=== PATIENT | female | born 1975 | race Hispanic/Latino ===

== ENCOUNTER 2016-08-19 16:59 | Emergency (ER) | payer MEDICAID ==
[2016-08-19 17:22] VITALS: BP 131/83; PULSE 86; RESP 16; TEMP 98.6; O2SAT 100
--- NOTE | 2016-08-19 17:38 | ED PDOC ---
HPI: Abdomen Chief Complaint (Provider): left sided flank pain History Per: Patient History/Exam Limitations: no limitations Onset/Duration Of Symptoms: Days (1 day), Waxing/Waning, Sudden Onset Outside of [place] travel?: No Current Symptoms Are (Timing): Still Present Location Of Pain/Discomfort: Other (left flank pain) Quality Of Discomfort: Sharp Associated Symptoms: Nausea, Urinary Symptoms (hematuria). denies: Fever, Vomiting, Diarrhea, Constipation Exacerbating Factors: Movement Alleviating Factors: Rest Additional History Per: Patient Abnormal Vaginal Bleeding: No <Guillermo Wang - Last Filed: 08/19/16 19:03> <Greta Rey - Last Filed: 08/19/16 20:48> Time Seen by Provider: 08/19/16 17:27 Chief Complaint (Nursing): Abdominal Pain Additional Complaint(s): 41 y/o F with h/o renal stones, pyelonephritis requiring hospitalizations ( 2000 , 2015, 2016) presenting due to 1 day history of left sided flank pain and hematuria. Pain is intense, waxing and waning, 8/10 intensity. Aggravated by movement and alleviated by rest. Associated with nausea, no vomtiing, some pain upon straining to urinate. Denies fevers, chills, CUMMINGS, cp,sob, cough, focal weakness. Of note, patient states requiring IV abx in the past for pyelonephritis and required lithotripsy back in 2000. Denies following up with any urologist or vice president payment. LMP: n/a hysterectomy in 2013 PMD: in [place] ( patient has not followed up since she moved to [place]) PMH: PE x 1 2013 ( states being on Xarelto indefinitely as per PMD?), renal stones, pyelonephritis, anxiety, depression (Guillermo Wang) Supervising Attending Note <Guillermo Wang - Last Filed: 08/19/16 19:03> - Supervising Attending Note The Documented history was done by the: Physician Database Administration Project Manager, Attending Physician The documented physical exam was done by the: Physician Database Administration Project Manager, Attending Physician - Attestation: I have personally seen and examined this patient.: Yes I have fully participated in the care of the patient.: Yes I have reviewed all pertinent clinical information: Yes <Greta Rey - Last Filed: 08/19/16 20:48> - Notes: Notes:: LEFT sided flank pain with h/o renal colic, findings of recurrent v chronic LEFT renal disease on CT scan, but no acute obstructing stones. Pt feels better. Strongly advised urology follow up. (Greta Rey) Past Medical History - Family History Family History: States: Other (Father h/o ''kidney problems'') - Social History Current smoker - smoking cessation education provided: No Alcohol: Social Drugs: Denies <Guillermo Wang - Last Filed: 08/19/16 19:03> <Greta Rey - Last Filed: 08/19/16 20:48> Vital Signs: Last Vital Signs Temp 98.6 F 08/19/16 17:20 Pulse 86 08/19/16 17:20 Resp 16 08/19/16 17:20 BP 131/83 08/19/16 17:20 Pulse Ox 100 08/19/16 19:04 - Home Medications Home Medications: Ambulatory Orders Medication Instructions Recorded Ciprofloxacin HCl [Cipro] 250 mg PO BID #14 tab 08/19/16 Tamsulosin [Flomax] 0.4 mg PO DAILY #14 cap 08/19/16 traMADol [Ultram] 50 mg PO TID PRN 4 Days 08/19/16 - Allergies Allergies/Adverse Reactions: Allergies Allergy/AdvReac Type Severity Reaction Status Date / Time NSAIDS (Non-Steroidal Allergy ANAPHYLAXIS Verified 08/19/16 17:19 Anti-Inflamma Penicillins Allergy ANAPHYLAXIS Verified 08/19/16 17:19 Sulfa (Sulfonamide Allergy ANAPHYLAXIS Verified 08/19/16 17:19 Antibiotics) Review of Systems ROS Statement: Except As Marked, All Systems Reviewed And Found Negative Constitutional: Negative for: Fever, Chills Cardiovascular: Negative for: Chest Pain, Palpitations, Edema, Light Headedness Respiratory: Negative for: Cough, Shortness of Breath, Wheezing Gastrointestinal: Positive for: Nausea, Abdominal Pain. Negative for: Vomiting , Diarrhea, Constipation, Hematochezia, Hematemesis Genitourinary Female: Positive for: Dysuria, Frequency, Hematuria. Negative for : Incontinence, Vaginal Discharge, Vaginal Bleeding, Rash Skin: Negative for: Rash <Guillermo Wang - Last Filed: 08/19/16 19:03> Physical Exam - Physical Exam Appears: Positive for: Uncomfortable Head Exam: Positive for: ATRAUMATIC Skin: Positive for: Warm, Dry Eye Exam: Positive for: EOMI Neck: Positive for: Normal, Painless ROM, Supple Cardiovascular/Chest: Positive for: Regular Rate, Rhythm Respiratory: Positive for: Normal Breath Sounds. Negative for: Wheezing, Respiratory Distress Gastrointestinal/Abdominal: Positive for: Soft. Negative for: Tenderness, Distended Back: Positive for: L CVA Tenderness. Negative for: R CVA Tenderness, Vertebral Tenderness Extremity: Negative for: Pedal Edema, Calf Tenderness Neurologic/Psych: Positive for: Alert, Oriented. Negative for: Motor/Sensory Deficits <Guillermo Wang - Last Filed: 08/19/16 19:03> - Laboratory Results Result Diagrams: 08/19/16 18:36 08/19/16 18:36 - ECG O2 Sat by Pulse Oximetry: 100 <Guillermo Wang - Last Filed: 08/19/16 19:03> - Laboratory Results Result Diagrams: 08/19/16 18:36 08/19/16 18:36 <Greta Rey - Last Filed: 08/19/16 20:48> - Progress ED Course And Treament: Left sided flank pain 2/2 renal stone IVF morphine 4 mg Zofran 4 mg CBC, CMP, UA CT abdo w/o contrast reassess (Guillermo Wang) Disposition - Disposition Disposition: Transfer of Care Disposition Time: 19:04 <Guillermo Wang - Last Filed: 08/19/16 19:03> Comment: Assumed care at 7pm pending reassessment and ER disposition. - Disposition Disposition: Routine/Home Disposition Time: 19:00 <Greta Rey - Last Filed: 08/19/16 20:48> - Clinical Impression Clinical Impression: Flank pain - Disposition Referrals: [facility] [Outside] [facility] [Outside] (CALL TOMORROW TO SETUP FOLLOW UP APPOINTMENT WITHIN A WEEK. YOU WILL NEED TO VISIT CLINIC FIRST IN ORDER TO SEE OTHER SPECIALISTS. YOU NEED TO FOLLOW UP WITH A UROLOGIST IN 1-2 WEEKS.) Condition: IMPROVED Prescriptions: Ciprofloxacin HCl [Cipro] 250 mg PO BID #14 tab Tamsulosin [Flomax] 0.4 mg PO DAILY #14 cap traMADol [Ultram] 50 mg PO TID PRN 4 Days PRN Reason: SEVERE PAIN ONLY Instructions: Renal Colic (ED)
[2016-08-19] MEDS ORDERED: Sodium Chloride 0.9% 1,000 ML IV STA (17:59)
[2016-08-19 18:32] LABS: RBC URINE 351 /hpf (0-3); URINE BACTERIA OCC (<OCC); URINE BILIRUBIN NEGATIVE (NEGATIVE); URINE BLOOD LARGE (NEGATIVE); URINE COLOR RED (YELLOW); URINE GLUCOSE (UA) NEG (Normal); URINE KETONE NEGATIVE (NEGATIVE); URINE LEUKOCYTE ESTERASE TRACE Leu/uL (Negative); URINE PROTEIN >=500 mg/dL (NEGATIVE); URINE UROBILINOGEN 0.2-1.0 mg/dL (0.2-1.0); WBC URINE 14 /hpf (0-5)
[2016-08-19 18:39] LABS: BASO % 0.8 % (0.0-2.0); EOS % 0.9 % (0.0-4.0); HEMATOCRIT 36.9 % (34.0-47.0); LYMPH # 1.3 K/uL (1.0-4.3); LYMPH % 26.1 % (20.0-40.0); MEAN CELL VOLUME 88.2 fl (81.0-99.0); MEAN CORPUSCULAR HEMOGLOBIN 28.9 pg (27.0-31.0); MEAN CORPUSCULAR HGB CONC 32.8 g/dL (33.0-37.0); MEAN PLATELET VOLUME 8.2 fl (7.2-11.7); MONO # 0.4 K/uL (0.0-0.8); MONO % 7.6 % (0.0-10.0); NEUT # 3.2 K/uL (1.8-7.0); NEUT % 64.6 % (50.0-75.0); RED CELL DISTRIBUTION WIDTH 14.5 % (11.5-14.5); WHITE BLOOD COUNT 4.9 K/uL (4.8-10.8)
[2016-08-19 18:56] LABS: ALB/GLOB RATIO 1.3 (1.0-2.1); ALKALINE PHOSPHATASE 58 U/L (38-126); ALT/SGPT 27 U/L (9-52); AST/SGOT 24 U/L (14-36); BILIRUBIN,TOTAL 0.3 mg/dl (0.2-1.3); BLOOD UREA NITROGEN 10 mg/dl (7-17); CALCIUM 9.6 mg/dL (8.4-10.2); CARBON DIOXIDE 24 mmol/L (22-30); CHLORIDE 106 mmol/L (98-107); GFR AFRICAN-AMERICAN > 60; GLUCOSE,RANDOM 93 mg/dL (65-105); POTASSIUM 3.7 MMOL/L (3.6-5.0); SODIUM 147 mmol/l (132-148); TOTAL PROTEIN 7.3 G/DL (6.3-8.2)
--- NOTE | 2016-08-19 19:01 | CT ---
PROCEDURE: CT Abdomen and Pelvis without intravenous contrast HISTORY: LEFT flank pain COMPARISON: None. TECHNIQUE: Axial and reformatted coronal and sagittal CT images of the abdomen and pelvis were obtained without IV or oral contrast administration.. Contrast Dose: 0 Radiation dose: Total exam DLP = 1115.8 mGy-cm. This CT exam was performed using one or more of the following dose reduction techniques: Automated exposure control, adjustment of the mA and/or kV according to patient size, and/or use of iterative reconstruction technique. FINDINGS: LOWER THORAX: No evidence of acute pathology. LIVER: Mild hepatomegaly and mild hepatic steatosis seen. GALLBLADDER AND BILE DUCTS: Status post cholecystectomy. PANCREAS: Unremarkable. No gross lesion or ductal dilatation. SPLEEN: Unremarkable. ADRENALS: Unremarkable. No mass. KIDNEYS AND URETERS: The left kidney is smaller than the right demonstrate market irregular cortex with foci of cortical thinning suggestive of prior infection or and or infarction. There are nonobstructing small left renal calculi mainly in the mid and upper pole. The largest calculus measures approximately 3.5 millimeter. Mildly dilated left renal collecting system without definite evidence of stone in the ureter. The right kidney is grossly unremarkable. VASCULATURE: Unremarkable. No aortic aneurysm. BOWEL: Unremarkable. No obstruction. No gross mural thickening. APPENDIX: The appendix is not visualized. PERITONEUM: Unremarkable. No free fluid. No free air. LYMPH NODES: Unremarkable. No enlarged lymph nodes. BLADDER: Unremarkable. REPRODUCTIVE: Likely status post hysterectomy. BONES: No acute fracture. OTHER FINDINGS: None. IMPRESSION: Nonobstructing small left renal calculi with the largest calculus approximately 3.5 millimeter. Left kidney is smaller than the right demonstrates irregular cortex and foci of cortical thinning likely due to prior infection or infarction. Slightly dilated left renal collecting system without evidence of obstructing stone. Otherwise no evidence of acute pathology in the abdomen and pelvis.
== END 2016-08-19 19:39 | disposition home or self-care (01) ==
LOC: H.ER 16:59
DX: R10.9 Unspecified abdominal pain (principal)

== ENCOUNTER 2016-08-20 22:22 | Emergency (ER) | payer MEDICAID ==
[2016-08-20 22:32] VITALS: BP 116/88; PULSE 87; RESP 16; TEMP 98.2; O2SAT 100
[2016-08-20] MEDS ORDERED: Ciprofloxacin 400mg/200ml D5W 200 ML IVPB STA (22:59)
[2016-08-20] MEDS ORDERED: Sodium Chloride 0.9% 1,000 ML IV STA (23:00)
[2016-08-20] MEDS ORDERED: Ciprofloxacin 400mg/200ml D5W 200 ML IVPB ONE (23:23)
[2016-08-20 23:25] LABS: BASO % 0.9 % (0.0-2.0); EOS # 0.1 K/uL (0.0-0.7); EOS % 1.1 % (0.0-4.0); HEMATOCRIT 35.2 % (34.0-47.0); LYMPH # 1.3 K/uL (1.0-4.3); LYMPH % 26.1 % (20.0-40.0); MEAN CELL VOLUME 88.3 fl (81.0-99.0); MEAN CORPUSCULAR HEMOGLOBIN 29.4 pg (27.0-31.0); MEAN CORPUSCULAR HGB CONC 33.3 g/dL (33.0-37.0); MEAN PLATELET VOLUME 8.1 fl (7.2-11.7); MONO # 0.4 K/uL (0.0-0.8); MONO % 8.9 % (0.0-10.0); NEUT # 3.1 K/uL (1.8-7.0); RED CELL DISTRIBUTION WIDTH 14.4 % (11.5-14.5); WHITE BLOOD COUNT 4.9 K/uL (4.8-10.8)
[2016-08-20] MEDS ORDERED: Iohexol 240 (50 ml) PO ONE (23:25)
--- NOTE | 2016-08-20 23:25 | ED PDOC ---
HPI: Abdomen Time Seen by Provider: 08/20/16 22:37 Chief Complaint (Nursing): Back Pain Chief Complaint (Provider): abdominal pain, flank pain History Per: Patient History/Exam Limitations: no limitations Onset/Duration Of Symptoms: Hrs Outside of US travel?: No Current Symptoms Are (Timing): Still Present Additional Complaint(s): 41yo female with PMHx including diverticulosis/diverticulitis, recurrent pyelo, kidney stones, PE presents to the ED with c/o left flank and abdominal pain. Patient was seen in this ED 1 day prior for same and diagnosed with UTI at that time and discharged on flomax, cipro, and tramadol. Reports she has been PO intolerant of medications and also complaining of diarrhea and persistent hematuria. Past Medical History Reviewed: Historical Data, Nursing Documentation, Vital Signs Vital Signs: Last Vital Signs Temp 98.2 F 08/20/16 22:31 Pulse 87 08/20/16 22:31 Resp 16 08/20/16 22:31 BP 116/88 08/20/16 22:31 Pulse Ox 100 08/20/16 23:32 - Medical History PMH: Anxiety, Depression, Diverticulitis, Kidney Stones, Pulmonary Embolism Other PMH: recurrent pyelo - Surgical History Surgical History: Appendectomy, Cholecystectomy Other surgeries: hysterectomy - Family History Family History: States: No Known Family Hx - Social History Current smoker - smoking cessation education provided: No Alcohol: None Drugs: Denies - Home Medications Home Medications: Ambulatory Orders Medication Instructions Recorded Ondansetron ODT [Zofran ODT] 4 mg PO Q6 PRN #12 odt 08/21/16 - Allergies Allergies/Adverse Reactions: Allergies Allergy/AdvReac Type Severity Reaction Status Date / Time NSAIDS (Non-Steroidal Allergy ANAPHYLAXIS Verified 08/19/16 17:19 Anti-Inflamma Penicillins Allergy ANAPHYLAXIS Verified 08/19/16 17:19 Sulfa (Sulfonamide Allergy ANAPHYLAXIS Verified 08/19/16 17:19 Antibiotics) Review of Systems ROS Statement: Except As Marked, All Systems Reviewed And Found Negative Gastrointestinal: Positive for: Vomiting, Abdominal Pain, Diarrhea Genitourinary Female: Positive for: Hematuria Musculoskeletal: Positive for: Back Pain (left flank ) Physical Exam - Reviewed Nursing Documentation Reviewed: Yes Vital Signs Reviewed: Yes - Physical Exam Appears: Positive for: Well, No Acute Distress Head Exam: Positive for: ATRAUMATIC, NORMAL INSPECTION, NORMOCEPHALIC Skin: Positive for: Normal Color, Warm, Dry Eye Exam: Positive for: Normal appearance, EOMI, PERRL ENT: Positive for: Normal ENT Inspection Neck: Positive for: Normal, Painless ROM, Supple Cardiovascular/Chest: Positive for: Regular Rate, Rhythm. Negative for: Murmur , Tachycardia Respiratory: Positive for: Normal Breath Sounds. Negative for: Wheezing, Respiratory Distress Gastrointestinal/Abdominal: Positive for: Bowel Sounds, Soft, Tenderness (mild LLQ ) Back: Positive for: Normal Inspection. Negative for: L CVA Tenderness, R CVA Tenderness Extremity: Positive for: Normal ROM. Negative for: Deformity, Swelling Neurologic/Psych: Positive for: Alert, Oriented. Negative for: Motor/Sensory Deficits - Laboratory Results Result Diagrams: 08/20/16 23:21 08/20/16 23:21 - ECG O2 Sat by Pulse Oximetry: 100 Pulse Ox Interpretation: Normal (RA) Medical Decision Making Medical Decision Makin: Impression: 41yo female w/ abdominal and flank pain in setting of diverticular disease and hx of stones/pyelo Plan: CT A/P w/ PO and IV contrast Labs Morphine 2mg IVP, IVF, Zofran 4mg IV, cipro 200ml IVPB reassess Provider highly suspicious of opiate seeking behavior based on patient's presentation and clinical findings. Informed patient she will not receive recurrent dosages of morphine. 0303: CT A/P impression: Moderate-large amount of stool in the cecum. Non acute findings in the left kidney as discussed above. 0340: Patient reports improvement in pain. Provider reviewed previous prescriptions for narcotics including 120 tablet of endocet that patient filled 2 weeks prior. Patient states she voluntarily lowered dosages and no longer wishes to take narcotics. Agreeable to d/c. Dx: UTI, constipation Rx: zofran Advised to eat prunes Scribe Attestation: Documented by Judd Phelps acting as a scribe for Sundeep Lee MD. Provider Scribe Attestation: All medical record entries made by the Scribe were at my direction and personally dictated by me. I have reviewed the chart and agree that the record accurately reflects my personal performance of the history, physical exam, medical decision making, and the department course for this patient. I have also personally directed, reviewed, and agree with the discharge instructions and disposition. Disposition - Clinical Impression Clinical Impression: Constipation, UTI (urinary tract infection) - Patient ED Disposition Is Patient to be Admitted: No - Disposition Referrals: [facility] [Outside] Disposition: Routine/Home Disposition Time: 03:40 Condition: STABLE Prescriptions: Ondansetron ODT [Zofran ODT] 4 mg PO Q6 PRN #12 odt PRN Reason: Nausea/Vomiting Instructions: Constipation (ED), Urinary Tract Infection in Women (ED)
[2016-08-20] MEDS ORDERED: Iohexol 240 (50 ml) ONE (23:40)
[2016-08-20 23:47] LABS: RBC URINE 849 /hpf (0-3); URINE BILIRUBIN NEGATIVE (NEGATIVE); URINE BLOOD LARGE (NEGATIVE); URINE COLOR YELLOW (YELLOW); URINE GLUCOSE (UA) NEG (Normal); URINE KETONE NEGATIVE (NEGATIVE); URINE LEUKOCYTE ESTERASE NEG Leu/uL (Negative); URINE PROTEIN 30 mg/dL (NEGATIVE); URINE UROBILINOGEN 0.2-1.0 mg/dL (0.2-1.0); WBC URINE 2 /hpf (0-5)
[2016-08-20 23:56] LABS: ALB/GLOB RATIO 1.3 (1.0-2.1); ALKALINE PHOSPHATASE 56 U/L (38-126); ALT/SGPT 28 U/L (9-52); AST/SGOT 23 U/L (14-36); BILIRUBIN,TOTAL 0.3 mg/dl (0.2-1.3); BLOOD UREA NITROGEN 10 mg/dl (7-17); CALCIUM 10.2 mg/dL (8.4-10.2); CARBON DIOXIDE 29 mmol/L (22-30); CHLORIDE 104 mmol/L (98-107); GFR AFRICAN-AMERICAN > 60; GLUCOSE,RANDOM 89 mg/dL (65-105); LIPASE 105 U/L (23-300); POTASSIUM 3.6 MMOL/L (3.6-5.0); SODIUM 147 mmol/l (132-148); TOTAL PROTEIN 7.1 G/DL (6.3-8.2)
[2016-08-21] MEDS ORDERED: Sodium Chloride 0.9% 50 ML IV ONE (01:51)
[2016-08-21] MEDS ORDERED: Iohexol 300 100 ML IJ ONE (01:51)
--- NOTE | 2016-08-21 03:04 | CT ---
EXAM: CT Abdomen and Pelvis With Intravenous Contrast CLINICAL HISTORY: 41 years old, female; Pain; Abdominal pain; Localized; Left lower quadrant (llq); Additional info: Llq/flank pain TECHNIQUE: Axial computed tomography images of the abdomen and pelvis with intravenous contrast. This CT exam was performed using one or more of the following dose reduction techniques: automated exposure control, adjustment of the mA and/or kV according to patient size, and/or use of iterative reconstruction technique. Coronal and sagittal reformatted images were created and reviewed. CONTRAST: 95 mL of [id number] administered intravenously. EXAM DATE/TIME: 08/20/2016 11:26 PM COMPARISON: No relevant prior studies available. FINDINGS: Cholecystectomy clips are present. The liver is prominent and is decreased in attenuation consistent with fatty infiltration. The spleen is normal. The pancreas is normal. The left kidney is decreased in size with respect to the right and has markedly irregular cortex with areas of cortical thinning. Small nonobstructing calculi are noted in the left kidney. No obstructing calculi. Pelvic phleboliths. There is a large amount of stool within the right colon. The patient appears be status post appendectomy. IMPRESSION: Moderate-large amount of stool in the cecum. Non acute findings in the left kidney as discussed above.
== END 2016-08-21 03:46 | disposition home or self-care (01) ==
LOC: H.ER 22:22
DX: N39.0 Urinary tract infection, site not specified (principal); K59.00 Constipation, unspecified; F41.9 Anxiety disorder, unspecified; Z86.711 Personal history of pulmonary embolism; Z88.0 Allergy status to penicillin